=== PATIENT | male | born 1975 | race American Indian/Alaskan Native ===

== ENCOUNTER 2017-08-21 06:40 | Day surgery (SDC) | payer OTHER ==
[2017-08-21 07:02] VITALS: BMI 26.2
[2017-08-21 07:21] VITALS: O2SAT 100
[2017-08-21] MEDS ORDERED: Simethicone 40 mg/0.6 ml Liquid (30 ml) ONE (07:55)
[2017-08-21] MEDS ORDERED: Propofol 10 mg/ml Inj (20 ML) ONE ×2 (07:57→08:25)
[2017-08-21] MEDS ORDERED: Lidocaine Hydrochloride 5 ML INJ ONE (07:57)
--- NOTE | 2017-08-21 07:57 | CP.SDSHP ---
Same Day Surgery H & P - History Proposed Procedure: colonoscopy Pre-Op Diagnosis: family history of colon cancer - screening colonoscopy - Previous Medical/Surgical History Pulmonary: Asthma - Allergies Allergies: Allergies No Known Allergies Allergy (Verified 08/18/17 14:19) - Current Medications Current Medications: See reconciliation - Physical Exam Vital Signs: Vital Signs 08/21/17 07:09 Temperature 97.3 F L Pulse Rate 63 Respiratory 20 Rate Blood Pressure 125/82 O2 Sat by Pulse 100 Oximetry Mental Status: Alert & Oriented x3 Neuro: WNL Heart: WNL Lungs: WNL GI: WNL - {Optional Preform as Required} Abdomen: WNL Integument: WNL ENT: WNL - Impression Impression: Pt with family history of colon cancer in 1st degree relative - plan for screening colonoscopy Pt. Evaluated Today:Candidate for Anesthesia & Procedure: Yes - Date & Time Date: 08/21/17 Time: 07:40 Short Stay Discharge - Short Stay Discharge Admitting Diagnosis/Reason for Visit: FAMILY HISTORY OF COLON CANCER Disposition: HOME/ ROUTINE
[2017-08-21] MEDS ORDERED: Atropine Sulfate 0.4 mg/ml (0.8mg/2ml) Syringe IV ONE (08:01)
[2017-08-21] MEDS ORDERED: ePHEDrine 50 mg/ml Inj ONE (08:10)
[2017-08-21 08:46] VITALS: TEMP 98.7
[2017-08-21 10:57] VITALS: BP 111/63; PULSE 59; RESP 16
== END 2017-08-21 09:50 | disposition home or self-care (01) ==
LOC: C.ENDO 06:40
PROVIDERS: ATTEND Internal Medicine
DX: Z12.11 Encounter for screening for malignant neoplasm of colon (principal); D12.2 Benign neoplasm of ascending colon; D12.5 Benign neoplasm of sigmoid colon; K64.8 Other hemorrhoids; Z80.0 Family history of malignant neoplasm of digestive organs; J45.909 Unspecified asthma, uncomplicated; Z98.52 Vasectomy status; Z98.890 Other specified postprocedural states
CPT/HCPCS: 45380; 88305; J2704